=== PATIENT | male | born 1970 | race Caucasian/White ===

== ENCOUNTER 2021-09-17 12:00 | Emergency (ER) | payer OTHER ==
[2021-09-17] MEDS ORDERED: SOTROVIMAB 500 MG in SODIUM CHLORIDE 100 ML IVPB ONE (12:33)
[2021-09-17 12:43] VITALS: BMI 31.1
[2021-09-17 15:16] VITALS: BP 131/79; PULSE 89; TEMP 98.2
== END 2021-09-17 15:15 | disposition home or self-care (01) ==
LOC: JER 12:00 → JCOVINFU 12:00
DX: U07.1 COVID-19 (principal)
CPT/HCPCS: 99284-25; M0247; Q0247